=== PATIENT | male | born 1975 | race Caucasian/White ===

== ENCOUNTER → 2024-03-17 | Outpatient (CLI) | payer BC | END | disposition home or self-care (01) | LOC: LABPRL 02:10 | PROVIDERS: ATTEND Internal Medicine Hematology & Oncology | DX: I10 Essential (primary) hypertension | CPT/HCPCS: 82105; 82607; 82746; 82784; 83883; 84165; 86334 ==

== ENCOUNTER → 2024-04-08 | Outpatient (CLI) | payer BC ==
--- NOTE | 2024-04-08 14:58 | US ---
EXAMINATION TYPE: US abdomen complete DATE OF EXAM: 04/08/2024 COMPARISON: CT 2011 CLINICAL INDICATION: Male, 49 years old with history of K76.0 FATTY (CHANGE OF) LIVER, NOT ELSEWHERE CLASS; TECHNIQUE: Multiple sonographic images of the abdomen are obtained. FINDINGS: EXAM MEASUREMENTS: Liver Length: 21.8 cm Gallbladder Wall: 0.3 cm CBD: 0.5 cm Spleen: 21.4 cm Right Kidney: 13.3 x 5.4 x 6.4 cm Left Kidney: 14.3 x 5.7 x 5.9 cm Pancreas: obscured by overlying midline bowel gas Liver: enlarged, attenuating, heterogeneous Gallbladder: multiple echogenic foci seen, multiple hypoechoic foci along wall with largest measurin g 0.3cm - ? polyps Evidence for sonographic Randall's sign: no CBD: visualized portions wnl, limited by overlying bowel gas Spleen: enlarged, a few hyperechoic areas with largest measuring 1.9cm Right Kidney: no hydronephrosis or masses seen Left Kidney: no hydronephrosis or masses seen Upper IVC: wnl Abd Aorta: proximal portion obscured by overlying midline bowel gas, visualized mid and distal porti ons appear wnl r IMPRESSION: 1. Hepatomegaly at 21.8 cm with moderate to severe hepatic steatosis or other nonspecific hepatocellu lar disease. Correlate with LFTs, lipid profile, and patient risk factors. 2. Numerous mural based nodules within the gallbladder measuring up to 3 mm, probably polyps. No shad owing stones are seen. Recommended six-month follow-up gallbladder ultrasound to reassess. 3. No biliary ductal dilatation. 4. Splenomegaly at 21.4 cm. A few echogenic lesions measuring 1.9 cm may represent granulomas or smal l hemangiomas.
== END | disposition home or self-care (01) ==
LOC: RADUSWWP 07:54
PROVIDERS: ATTEND Internal Medicine Hematology & Oncology
DX: K76.0 Fatty (change of) liver, not elsewhere classified (principal); I10 Essential (primary) hypertension; E11.9 Type 2 diabetes mellitus without complications; R16.2 Hepatomegaly with splenomegaly, not elsewhere classified; K76.9 Liver disease, unspecified
CPT/HCPCS: 76700

== ENCOUNTER → 2024-08-24 | Outpatient (CLI) | payer BC ==
--- NOTE | 2024-08-24 08:32 | US ---
EXAMINATION TYPE: US abdomen complete DATE OF EXAM: 08/24/2024 COMPARISON: US(04/08/2024) CLINICAL INDICATION: Male, 49 years old with history of R16.1 SPLENOMEGALY; TECHNIQUE: Grayscale and color Doppler imaging of the abdomen was performed. FINDINGS: EXAM MEASUREMENTS: Liver Length: 21.6 cm Gallbladder Wall: 0.5 cm CBD: 0.7 cm, color Doppler imaging was utilized to isolate the common bile duct for measurement. Spleen: 22.3 cm Right Kidney: 15.2x7.2x7.0 cm Left Kidney: 14.4x5.8x7.0 cm FORM SETTER NOTES: very limited scan due to pt body habitus and overlying bowel Pancreas: Obscured by bowel gas Liver: Increased attenuation, decreased visualization of vessels suggestive of fatty infiltrate, dif ficult to penetrate Gallbladder: Multiple echogenic foci seen, Largest:0.5cm, ?Echogenic foci seen within wall, ?thickened irregular wall Evidence for sonographic Randall's sign: No CBD: wnl Spleen: Enlarged, multiple hyperechoic areas seen, Largest:1.6x1.5x1.5cm Right Kidney: wnl Left Kidney: wnl Upper IVC: partially visualized, wnl at best seen Abd Aorta: prox not well visualized due to overlying bowel, mid/dist: partially visualized, wnl at b est seen IMPRESSION: 1. Hepatosplenomegaly. 2. Multiple hyperechoic nodules within the spleen. No enlarging nodules identified. 3. Cholelithiasis. 4. Some nodular gallbladder wall thickening may be present, continued follow up recommended. [facility], , 08/24/2024 8:30 AM
== END | disposition home or self-care (01) ==
LOC: RADUSWWP 06:44
PROVIDERS: ATTEND Internal Medicine Hematology & Oncology
DX: R16.2 Hepatomegaly with splenomegaly, not elsewhere classified (principal); K80.20 Calculus of gallbladder without cholecystitis without obstruction; D61.818 Other pancytopenia; E11.9 Type 2 diabetes mellitus without complications
CPT/HCPCS: 76700

== ENCOUNTER 2025-01-18 08:18 | Day surgery (SDC) | payer BC ==
[~2025-01-18 08:18] MED LIST: LIDOCAINE 1% (10MG/ML) FOR IV START INTRADERMA PRN
[2025-01-18] MEDS: IV FLUID CONTINUATION 1,000 ML IV ONE (08:34)
[2025-01-18 08:37] VITALS: RESP 16; TEMP 97.7
[2025-01-18 08:58] LABS: Glucose,Whole Blood 136 mg/dL (70-110)
[2025-01-18] MEDS: LACTATED RINGERS 1,000 ML IV SCH (08:58)
[2025-01-18] MEDS ORDERED: PROPOFOL 10 MG/ML 20 ML VIAL IV ONE (09:18)
[2025-01-18] MEDS ORDERED: LIDOCAINE 2% (PF) 20 MG/ML 5 ML VIAL ONE (09:18)
--- NOTE | 2025-01-18 09:26 | P.PCN ---
Date of Procedure: 01/18/25 Procedure(s) Performed: BRIEF HISTORY: Patient is a 49-year-old, pleasant, white male scheduled for an upper endoscopy as a part of screening for esophageal varices. 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 PROCEDURE PERFORMED: Esophagogastroduodenoscopy. PREOPERATIVE DIAGNOSIS: History of liver cirrhosis screening for esophageal varices. IV sedation per anesthesia. PROCEDURE: After informed consent was obtained, the patient was brought into the endoscopy unit. IV sedation was administered by Anesthesia under continuous monitoring. Initially the Olympus GIF-140 video endoscope was inserted into the mouth. Esophagus intubated without any difficulty. It was gradually advanced into the stomach and duodenum and carefully examined. The bulb and the second part of the duodenum appeared normal. The scope at this time was withdrawn to the stomach, adequately insufflated with air, and upon careful examination, mucosa of the antrum and mild gastritis. Mucosa, body, cardia and the fundus appeared normal. No gastric varices identified. The scope was then withdrawn into the esophagus. The GE junction was located at 39 cm from the incisors. Small distal esophageal varices seen. No red [place] identified. The esophagus appeared normal. There were no erosions or ulcerations seen and the patient tolerated the procedure well. IMPRESSION: 1. Small distal esophageal varices with no red [place]. 2. No gastric varices 3. Mild gastritis. RECOMMENDATIONS: The findings of this examination were discussed with the patient as well as his family. He was advised to have repeat screening upper endoscopy in 3 years as a part of follow-up of esophageal varices..
[2025-01-18 09:46] VITALS: BP 114/69; PULSE 98
== END 2025-01-18 10:16 | disposition home or self-care (01) ==
LOC: ORWHC2ENDO 08:18
PROVIDERS: ATTEND Internal Medicine Gastroenterology
DX: Z13.810 Encounter for screening for upper gastrointestinal disorder (principal); K74.60 Unspecified cirrhosis of liver; I85.10 Secondary esophageal varices without bleeding; K76.0 Fatty (change of) liver, not elsewhere classified; K29.70 Gastritis, unspecified, without bleeding; I10 Essential (primary) hypertension; E11.9 Type 2 diabetes mellitus without complications; K21.9 Gastro-esophageal reflux disease without esophagitis; Z79.899 Other long term (current) drug therapy; Z79.84 Long term (current) use of oral hypoglycemic drugs; Z98.890 Other specified postprocedural states; Z88.2 Allergy status to sulfonamides
CPT/HCPCS: 43235; J2704; J2003